=== PATIENT | female | born 1970 | race Caucasian/White ===

== ENCOUNTER → 2017-09-17 12:57 | Outpatient (CLI) | payer BC, SELFPAY ==
--- NOTE | 2017-09-17 13:00 | DI.MG.S_ITS ---
Patient Name: KEYANA KHALIL date: 1970 Sex: F Attending Physician: Tim Indications: Date: 09/17/2017 13:00 At the request of: FORTINO GAINES Procedure: MM screening mammo BI BILATERAL DIGITAL SCREENING MAMMOGRAM 3D/2D WITH CAD: 09/17/2017 CLINICAL: Routine screening. Family history of breast cancer. Comparison is made to exams dated: 04/22/2013 mammogram and 12/09/2010 mammogram - [facility]. The tissue of both breasts is heterogeneously dense. This may lower the sensitivity of mammography. Current study was also evaluated with a Computer Aided Detection (CAD) system. There is possible architectural distortion in the left breast middle depth central to the nipple seen on the mediolateral oblique view only. This is best seen on LMLO tomosynthesis slice 17 /66. There are circular mole markers and skin moles overlying the breasts bilaterally. No other significant masses, calcifications, or other findings are seen in either breast. IMPRESSION: INCOMPLETE: NEEDS ADDITIONAL IMAGING EVALUATION The possible architectural distortion in the left breast is indeterminate. Additional views with possible ultrasound are recommended. This exam was interpreted at Station ID: [id number]. NOTE: For mammograms, a report in lay terms will be sent to the patient. Approximately 15% of breast malignancies will not be visualized mammographically. In the management of a palpable breast mass, a negative mammogram must not discourage biopsy of a clinically suspicious lesion. Electronically Signed By: Jan Joe M.D. ecl/:09/17/2017 20:42:17 Continued Report - Page 2 of 2 Patient Name: KEYANA KHALIL date: 1970 Sex: F Attending Physician: Tim Indications: Date: 09/17/2017 13:00 At the request of: FORTINO GAINES Procedure: MM screening mammo BI letter sent: Additional Imaging Needed ACR BI-RADS Category 0: Incomplete 3340F
== END ==
PROVIDERS: PCP Nurse Practitioner; Visit Provider Nurse Practitioner Family
DX: Z12.31 Encounter for screening mammogram for malignant neoplasm of breast (principal); Z80.3 Family history of malignant neoplasm of breast
CPT/HCPCS: 77063; 77067

== ENCOUNTER → 2017-10-02 06:46 | Outpatient (CLI) | payer BC, SELFPAY ==
[2017-10-02 08:23] LABS: Appearance Urine UA CLEAR; Bilirubin Urine UA NEGATIVE (NEGATIVE); Color Urine UA YELLOW; Glucose Urine UA NEGATIVE (Normal); Ketones Urine UA TRACE (NEGATIVE); Leukocyte Esterase Urine UA NEGATIVE (NEGATIVE); Nitrite Urine UA Negative (Negative); Occult Blood Urine UA NEGATIVE (Negative); Protein Urine UA NEGATIVE (Negative); Urobilinogen Urine UA 0.2 E.U./dL (0.2); pH Urine UA 6.5 (4.5-8.0)
[2017-10-02 08:24] LABS: Add Manual Diff / Slide Review NO; Eosinophils Percent Auto 2.2 % (2-4); Hemoglobin 14.5 g/dL (12.0-16.0); Lymphocytes Percent Auto 28.5 % (25-40); Mean Corpuscular HGB Conc 34.6 % (30-36); Mean Corpuscular Hemoglobin 34.7 PG (26-34); Mean Corpuscular Volume 100.1 fL (80-100); Monocytes Percent Auto 2.1 % (3-14); Neutrophils Absolute Auto 4300 /uL (3000-5900); Neutrophils Percent Auto 66.2 % (50-75); Platelet Count 288 X10^3/uL (150-400); Red Blood Cell Count 4.19 X10^6/uL (4.0-5.2); Red Cell Distribution Width 13.3 % (11.6-14.8); White Blood Cell Count 6.5 X10^3/uL (4.5-11.0)
[2017-10-02 08:55] LABS: Alanine Aminotransferase 21 IU/L (9-52); Albumin 4.5 g/dL (3.5-5.0); Albumin Globulin Ratio 1.6 (1.0-2.8); Alkaline Phosphatase 51 U/L (38-126); Aspartate Aminotransferase 24 IU/L (14-36); BUN Creatinine Ratio 11.4 (6-22); Bilirubin Total 0.9 mg/dL (0.2-1.3); Blood Urea Nitrogen 8 mg/dL (7-17); Calcium 9.3 mg/dL (8.4-10.2); Carbon Dioxide 29 mmol/L (22-32); Chloride 99 mmol/L (98-107); Cholesterol 224 mg/dL (140-199); Estimated Glomerular Filt Rate > 60.0 mL/min (>60); Globulin 2.9 g/dL (1.7-4.1); Glucose 89 mg/dL (70-100); HDL Cholesterol 71 mg/dL (40-60); HEMOLYSIS < 15 (0-50); LDL Cholesterol Calculated 125 mg/dL (<100); Sodium 138 mmol/L (137-145); Total Protein 7.4 g/dL (6.3-8.2); Triglycerides 142 mg/dL (35-150)
== END ==
PROVIDERS: Visit Provider Nurse Practitioner Family
DX: Z00.00 Encounter for general adult medical examination without abnormal findings (principal); E78.2 Mixed hyperlipidemia
CPT/HCPCS: 36415; 80053; 80061; 81003; 85025

== ENCOUNTER → 2017-10-08 08:14 | Outpatient (CLI) | payer BC, SELFPAY ==
--- NOTE | 2017-10-08 08:16 | DI.US.S_ITS ---
ULTRASOUND OF LEFT BREAST: 10/08/2017 CLINICAL: Follow up from addtional views. Comparison is made to exams dated: 10/08/2017 mammogram, 09/17/2017 mammogram, and 04/22/2013 mammogram - [facility]. Real-time and Doppler ultrasound of the left breast were performed. Martinez scale images of the real-time examination were reviewed. Targeted ultrasound was performed in the left retroareolar region and along the 3:00 and 9:00 radians. No underlying breast mass or abnormality is identified. IMPRESSION: NEGATIVE Negative targeted ultrasound evaluation of the left breast for malignancy. Return to annual screening mammography is recommended. This exam was interpreted at Station ID: [id number]. Electronically Signed By: Jan Joe M.D. ecl/:10/08/2017 17:54:40 letter sent: Normal Exam Ultrasound BI-RADS: 1 Negative
--- NOTE | 2017-10-08 08:16 | DI.MG.S_ITS ---
UNILATERAL LEFT DIGITAL DIAGNOSTIC MAMMOGRAM 3D/2D WITH ADDITIONAL VIEWS: 10/08/2017 CLINICAL: Additional evaluation requested from prior study. Comparison is made to exams dated: 09/17/2017 mammogram, 04/22/2013 mammogram, and 12/09/2010 mammogram - [facility]. The tissue of the left breast is heterogeneously dense. This may lower the sensitivity of mammography. Previously noted possible architectural distortion in the left breast middle depth central to the nipple seen on the mediolateral oblique view only on comparison screening mammogram resolves with additional views and likely represented superimposition of benign anatomic tissues. No significant masses, calcifications, or other findings are seen in the breast. IMPRESSION: INCOMPLETE: NEEDS ADDITIONAL IMAGING EVALUATION Negative mammographic evaluation for malignancy in the imaged left breast. Targeted ultrasound of the left breast recommended. This exam was interpreted at Station ID: [id number]. NOTE: For mammograms, a report in lay terms will be sent to the patient. Approximately 15% of breast malignancies will not be visualized mammographically. In the management of a palpable breast mass, a negative mammogram must not discourage biopsy of a clinically suspicious lesion. Electronically Signed By: Jan brizuela/sourav:10/08/2017 08:54:24 letter sent: Additional Imaging Needed ACR BI-RADS Category 0: Incomplete [id number]
== END ==
PROVIDERS: Visit Provider Nurse Practitioner Family
DX: R92.8 Other abnormal and inconclusive findings on diagnostic imaging of breast (principal)
CPT/HCPCS: 76642; 77065; G0279

== ENCOUNTER → 2020-10-24 11:04 | Outpatient (CLI) | payer BC, SELFPAY ==
--- NOTE | 2020-10-24 11:06 | DI.RAD.S_ITS ---
PROCEDURE: XR HIP W PEL IF DONE LT 2V INDICATIONS: fall, L hip pain, ambulating with crutches TECHNIQUE: AP pelvis with lateral view(s) of the left hip(s). COMPARISON: None. FINDINGS: Bones: No fractures or dislocations. Pelvic ring appears intact. No suspicious bony lesions. Soft tissues: The visualized bowel gas pattern is normal. No suspicious soft tissue calcifications. Intrauterine device present. IMPRESSION: No acute fracture. No osseous lesion. If symptoms and/or clinical suspicion for pathology persist, further assessment with repeat, or advanced imaging (e.g., CT, MRI, or bone scan) may be helpful for further assessment. Dictated by: Priscila Urbano M.D. on 10/24/2020 at 11:23 Approved by: Priscila Urbano M.D. on 10/24/2020 at 11:23
== END ==
PROVIDERS: PCP Family Medicine; Referring Provider Physician Assistant; Visit Provider Physician Assistant
DX: M25.552 Pain in left hip (principal)
CPT/HCPCS: 73502

== ENCOUNTER → 2022-03-27 17:24 | Outpatient (CLI) | payer OTHER, SELFPAY ==
--- NOTE | 2022-03-27 17:33 | DI.RAD.S_ITS ---
PROCEDURE: XR SACRUM COCCYX MIN 2V INDICATIONS: Low back pain TECHNIQUE: 3 views of the sacrum and coccyx acquired. COMPARISON: [facility], CR, XR HIP W PEL IF DONE LT 2V, 10/24/2020, 11:03. FINDINGS: Bones: No fractures or dislocations. SI joints appear symmetric. No interval change seen. No sacral fracture or coccyx fracture is seen. No suspicious bony lesions. Soft tissues: Visualized bowel gas pattern is normal. No suspicious soft tissue densities. IUD in the pelvis. IMPRESSION: No fracture demonstrated. Dictated by: Dexter Rai M.D. on 03/28/2022 at 10:37 Approved by: Dexter Rai M.D. on 03/28/2022 at 10:52
== END ==
PROVIDERS: PCP Family Medicine; Referring Provider Nurse Practitioner Family; Visit Provider Nurse Practitioner Family
DX: M54.50 Low back pain, unspecified (principal)
CPT/HCPCS: 72220

== ENCOUNTER → 2022-04-12 12:47 | Outpatient (ROUT) | payer OTHER, SELFPAY ==
[2022-04-12 12:59] LABS: Appearance Urine UA CLEAR; Bilirubin Urine UA NEGATIVE (NEGATIVE); Color Urine UA YELLOW; Glucose Urine UA NEGATIVE (Negative); Ketones Urine UA NEGATIVE (NEGATIVE); Leukocyte Esterase Urine UA NEGATIVE (NEGATIVE); Nitrite Urine UA NEGATIVE (Negative); Occult Blood Urine UA NEGATIVE (Negative); Protein Urine UA NEGATIVE (Negative); Specific Gravity Urine UA <=1.005 (1.000-1.035); Urobilinogen Urine UA 0.2 E.U./dL (0.2)
[2022-04-12 13:00] LABS: pH Urine UA 5.5 (4.5-8.0)
[2022-04-12 13:17] LABS: Bacteria Urine None Seen; Culture Indicated Urine Cult Not Indicated; RBC Urine None Seen (0-5/HPF); Urine Comments Microscopic Normal; WBC Urine None Seen (0-5/HPF)
== END ==
PROVIDERS: PCP Family Medicine; Visit Provider Physician Assistant
DX: M54.50 Low back pain, unspecified (principal); R30.0 Dysuria
CPT/HCPCS: 81001

== ENCOUNTER → 2022-04-12 17:28 | Outpatient (CLI) | payer OTHER, SELFPAY ==
--- NOTE | 2022-04-12 17:30 | DI.RAD.S_ITS ---
PROCEDURE: XR LUMBAR SPINE 2-3V INDICATIONS: Low back pain x 3 months, getting worse TECHNIQUE: 3 views of the lumbar spine were acquired. COMPARISON: None. FINDINGS: Bones: 5 [id number] vertebrae are present. There is normal bony alignment. No vertebral body compression fractures. No suspicious bony lesions. Multilevel disc space narrowing and endplate osteophyte formation. Facet hypertrophy throughout the mid and lower lumbar spine. Soft tissues: Overlying bowel gas pattern is normal. No suspicious soft tissue calcifications. IMPRESSION: 1. Multilevel degenerative disc and facet disease. 2. No acute fracture. No osseous lesion. If symptoms and/or clinical suspicion for pathology persist, further assessment with repeat, or advanced imaging (e.g., CT, MRI, or bone scan) may be helpful for further assessment. Dictated by: Priscila Urbano M.D. on 04/13/2022 at 10:41 Transcribed by: ORAL on 04/13/2022 at 10:42 Approved by: Priscila Urbano M.D. on 04/13/2022 at 16:22
== END ==
PROVIDERS: PCP Family Medicine; Referring Provider Physician Assistant; Visit Provider Physician Assistant
DX: M51.36 Other intervertebral disc degeneration, lumbar region (principal); M54.50 Low back pain, unspecified; R30.0 Dysuria
CPT/HCPCS: 72100; 81001

== ENCOUNTER → 2022-05-07 12:07 | Outpatient (CLI) | payer OTHER, SELFPAY ==
--- NOTE | 2022-05-07 12:41 | DI.MRI.S_ITS ---
PROCEDURE: MR LUMBAR SPINE WO CON INDICATIONS: abnormal xray/back pain TECHNIQUE: Noncontrast sagittal T1 spin echo and T2 fast echo, sagittal STIR, and T2 fast spin echo through the lumbar spine. In cases with scoliosis, additional coronal T2 fast spin echo may be performed. COMPARISON: [facility], , XR LUMBAR SPINE 2-3V, 04/12/2022, 17:29. FINDINGS: Image quality: Excellent. Alignment and Curvature: 5 lumbar type vertebral bodies are present by plain film. Alignment is normal. Bone Marrow: Marrow is of normal overall signal. No acute vertebral body compression fractures. Minimal reactive signal throughout the endplates of the lumbar and lower thoracic spine. Spinal Cord: Conus medullaris terminates at the lower L1 level. Visualized cord demonstrates normal signal and size. Paraspinous Soft Tissues: No paravertebral masses. T12-L1: Normal appearance. L1-L2: Normal appearance. L2-L3: Normal appearance. L3-L4: Mild disc desiccation and diffuse disc bulge. Mild epidural lipomatosis. No significant canal, or foraminal stenosis. L4-L5: Mild disc desiccation and diffuse disc bulge. Mild canal stenosis. Mild bilateral foraminal stenosis. L5-S1: Normal appearance. IMPRESSION: Multilevel degenerative disc and facet disease. No significant canal, or foraminal stenosis. No neural impingement. Dictated by: Priscila Urbano M.D. on 05/08/2022 at 10:37 Approved by: Priscila Urbano M.D. on 05/08/2022 at 10:45
== END ==
PROVIDERS: PCP Family Medicine; Referring Provider Physician Assistant; Visit Provider Physician Assistant
DX: M51.36 Other intervertebral disc degeneration, lumbar region (principal); M48.061 Spinal stenosis, lumbar region without neurogenic claudication; M54.50 Low back pain, unspecified; R93.7 Abnormal findings on diagnostic imaging of other parts of musculoskeletal system
CPT/HCPCS: 72148

== ENCOUNTER → 2022-05-26 07:25 | Outpatient (CLI) | payer OTHER, SELFPAY ==
--- NOTE | 2022-05-26 07:27 | DI.MG.S_ITS ---
BILATERAL DIGITAL SCREENING MAMMOGRAM 3D/2D WITH CAD: 05/26/2022 CLINICAL: Routine screening. Comparison is made to exams dated: 10/08/2017 ultrasound, 10/08/2017 mammogram, 09/17/2017 mammogram, and 04/22/2013 mammogram - [facility]. Both breasts are heterogeneously dense, which may obscure small masses (category c / 51-75% glandular tissue). Current study was also evaluated with a Computer Aided Detection (CAD) system. No significant masses, calcifications, or other findings are seen in either breast. There has been no significant interval change. IMPRESSION: NEGATIVE There is no mammographic evidence of malignancy. A 1 year screening mammogram is recommended. Based on the Tyrer Cuzick model (a risk assessment model) the patient's lifetime risk is 18.0% and her 10 year risk is 4.6%. According to the ACR, ACS, and NCCN guidelines, an annual breast MRI exam along with mammogram is recommended if the patient's lifetime risk is 20% or greater. This exam was interpreted at Station ID: [id number]. NOTE: For mammograms, a report in lay terms will be sent to the patient. Approximately 15% of breast malignancies will not be visualized mammographically. In the management of a palpable breast mass, a negative mammogram must not discourage biopsy of a clinically suspicious lesion. Electronically Signed By: Janae vásquez/sourav:05/26/2022 15:26:05 letter sent: Normal Exam ACR BI-RADS Category 1: Negative [id number]
[2022-05-26 10:11] LABS: Cholesterol 196 mg/dL (140-199); Glucose 82 mg/dL (70-100); HDL Cholesterol 57 mg/dL (40-60); LDL Cholesterol Calculated 116 mg/dL (<100); Triglycerides 114 mg/dL (35-150)
== END ==
PROVIDERS: PCP Family Medicine; Referring Provider Family Medicine; Visit Provider Family Medicine
DX: Z12.31 Encounter for screening mammogram for malignant neoplasm of breast (principal); Z00.00 Encounter for general adult medical examination without abnormal findings
CPT/HCPCS: 36415; 77063; 77067; 80061; 82947; 99001

== ENCOUNTER 2022-08-15 14:26 | Outpatient (CLI) | payer OTHER, SELFPAY ==
[2022-08-15] VITALS (8 sets, daily range): BP systolic 119–141; BP diastolic 69–92; PULSE 67–81; RESP 14–22; O2SAT 98–100
--- NOTE | 2022-08-15 14:27 | DI.RAD.S_ITS ---
PROCEDURE: PAIN SI JOINT INJECTION INDICATIONS: COCCYGEAL DISCOMFORT COMPARISON: None. FINDINGS: Fluoroscopic spot filming was performed to verify placement of spinal needles at the cocked level(s), as labeled on the films. Appropriate location(s) of the needle tip(s) was confirmed by injection of iodinated contrast. IMPRESSION: Coccyx needle placement. Dictated by: Vicky Stewart M.D. on 08/15/2022 at 17:37 Approved by: Vicky Stewart M.D. on 08/15/2022 at 17:37
[2022-08-15] MEDS: MIDAZOLAM 2 MG/2 ML VIAL IV (15:26)
[2022-08-15] MEDS: BETAMETHASONE 30 MG/5 ML MDV 12 MG INJ (15:31)
[2022-08-15] MEDS: IOPAMIDOL 15 ML VIAL 3 ML INJ (15:31)
[2022-08-15] MEDS: BUPIVACAINE 0.5% (PF) 10 ML VIAL 2 ML INJ (15:31)
--- NOTE | 2022-08-15 15:45 | PM.PROC.IR.1 ---
Date/Time/Diagnoses Date of procedure: 08/15/22 Time of procedure: 15:46 Pre-procedure diagnosis: Coccydynia Procedure Notes Procedure: Fluoroscopically guided contrast controlled Coccyx Injection Indications: Coccydynia Physician: Edy Mcgill Total Fluoroscopy time (seconds): 18 Total sedation minutes: 14 Procedure in detail & Post-procedure care: DESCRIPTION OF PROCEDURE Fluoroscopic guided, contrast controlled coccyx injection Following review of allergies and review of potential side effects and complications, including, but not necessarily limited to, infection, allergic reaction, local tissue breakdown, temporary as well as permanent nerve injury, paralysis, stroke and possible , the patient indicated that they understood and agreed to proceed. An informed consent was signed by the patient, witnessed by a nurse, and placed in the patient's chart. Additionally, other treatment options including modalities, medications, and physical therapy were reviewed with the patient. After review of previous anaesthesic history and IV conscious sedation the patient was deemed safe to proceed with today?s procedure with IV conscious sedation as ASA class II designation. Safety time-out was performed to confirm patient ID, procedure to be performed and site of procedure. IV sedation was accomplished with a combination of 2mg of Versed administered by the RN after DO order, titrated to patient comfort during the course of the procedure while the patient remained responsive to all verbal commands. In the prone position following sterile prep and drape of the pelvic region, the hyper lucency on in the inferior aspect of the coccyx joint was identified fluoroscopically the skin was anesthetized be a 25 gauge 1 eventual with approximately 2cc of 1% lidocaine solution. At this point, a 22 gauge 3inch spinal needle was atraumatically introduced and advanced under fluoroscopic guidance into the inferior aspect of the left sacroiliac joint. Following negative aspiration, approximately 0.3cc of Isovue-300 was injected confirming intra-articular placement without vascular uptake. Radiographic data, including multiple fluoroscopic views of the pelvis, reveals a spinal needle in the coccyx. Subsequent view show flow contrast tear superiorly and inferiorly within the joint capsule without vascular intrathecal uptake. At this point a total of 1cc or 0.5% Marcaine was combined with 1cc of 6mg of betamethasone was injected without incident. The patient tolerated the procedure well without signs or symptoms of complications prior to transfer to the recovery area for further monitoring. The patient was then transferred to the recovery area with a bur observed for an appropriate time after the injection. The patient reverted a vas score of 7 prior to the procedure and postprocedure vas of 1. POSTOP INSTRUCTIONS The patient was provided with a pain like to continue to record the patient's response to the target specific procedure prior to the patient's follow-up visit with the referring physician. Additionally, specific post injection care instructions and a contact number to our office were provided if concerns arise regarding the possible complications associated with procedure are suspected.
== END 2022-08-15 15:56 | disposition home or self-care (01) ==
LOC: RAD 14:27
PROVIDERS: PCP Family Medicine; Referring Provider Physical Medicine & Rehabilitation; Visit Provider Physical Medicine & Rehabilitation
DX: M53.3 Sacrococcygeal disorders, not elsewhere classified (principal)
CPT/HCPCS: 27096; 99152; J0702; J2250

== ENCOUNTER → 2022-10-03 14:46 | Outpatient (CLI) | payer OTHER, SELFPAY | PROVIDERS: PCP Family Medicine; Referring Provider Physical Medicine & Rehabilitation; Visit Provider Physical Medicine & Rehabilitation | DX: M53.3 Sacrococcygeal disorders, not elsewhere classified (principal) ==

== ENCOUNTER → 2022-10-09 17:14 | Outpatient (CLI) | payer OTHER, SELFPAY ==
--- NOTE | 2022-10-09 17:15 | DI.MRI.S_ITS ---
PROCEDURE: MR PELIS WO/W CON INDICATIONS: progressive pelvic and coccyx pain since 01/24 TECHNIQUE: Coronal HASTE, sagittal T2 FSE, axial T1 FSE, axial and coronal nonbreath-hold T2 FSE. Axial dynamic VIBE during administration of contrast. Post-contrast axial and coronal VIBE/2-D FLASH with fat saturation from the iliac crests to the symphysis. Optional diffusion weighted imaging and ADC may be performed. COMPARISON: [facility], CR, XR SACRUM COCCYX MIN 2V, 03/27/2022, 17:31. FINDINGS: Image quality: Excellent. Bowel and peritoneum: No pathologic free pelvic fluid. Inferior colon and small bowel loops are normal in caliber. Genitourinary system: Bladder wall is normal in thickness. Distal ureters are non distended. Uterus and bilateral ovaries show no gross abnormalities. Nodes and vessels: No pathologic pelvic or inguinal adenopathy by size criteria. Iliac vessels are normal in caliber. Soft tissues: No inguinal hernias. No gross muscle or tendon signal abnormalities. Bones: There is no marrow edema. No fracture or dislocation. No sacral or coccygeal fracture. Bilateral sacroiliac joint spaces are fairly well preserved without bony erosion or ankylosis. No area of abnormal intraosseous enhancement. No suspicious bony lesions. No evidence of avascular necrosis of femoral head. IMPRESSION: 1. No sacral or coccygeal fracture. No marrow edema. No suspicious bony lesion. No abnormal intraosseous enhancement. 2. No MR evidence of active sacroiliitis. No bony erosion or ankylosis is seen in bilateral sacroiliac joints. 3. No gross muscle or tendon signal abnormality is seen in pelvis. 4. No pelvic free fluid. No abnormal bowel wall thickening. Bladder wall thickness is normal. No pelvic lymphadenopathy by size criteria. Dictated by: Elmer Galeas M.D. on 10/10/2022 at 12:38 Approved by: Elmer Galeas M.D. on 10/10/2022 at 12:42
== END ==
PROVIDERS: PCP Family Medicine; Referring Provider Physical Medicine & Rehabilitation; Visit Provider Physical Medicine & Rehabilitation
DX: M53.3 Sacrococcygeal disorders, not elsewhere classified (principal); R10.2 Pelvic and perineal pain
CPT/HCPCS: 72197; A9579

== ENCOUNTER 2022-10-20 06:45 | Day surgery (SDC) | payer OTHER, SELFPAY ==
--- NOTE | 2022-10-20 | PATH_ITS ---
[facility] Accession Number: [id number] No. of containers..03 Tissue . 01 Material submitted: . PART A: colon - TRANSVERSE POLYP PART B: colon - SIGMOID POLYP PART C: anal skin - ANAL MASS . 01 Diagnosis: A. Transverse Colon Polyp, Biopsy: Tubular adenoma. . B. Sigmoid Colon Polyp, Biopsy: Hyperplastic polyp. . C. Anal Mass, Biopsy: Invasive colonic adenocarcinoma, moderate to poorly differentiated in a background of ulceration. No definite lymphovascular or perineural invasion identified. See comment. [facility] 11/01/2022 1330 Local . 01 Comment: As part of routine quality control assistant, this case was also reviewed by Dr. Rolan Louis, gastrointestinal pathologist, who agrees with the interpretation. . Immunoshistochemical staining for markers of microsatellite instability (MSI) will be performed and the results will be reported as an addendum. Findings were called to Dr. Choi's nurse, Ms Saunders on 11/01/20[address] Parada. . 01 Electronically signed: . Cheryl Parada MD, Pathologist NPI- [id number] . 01 Gross description: . Part A: TRANSVERSE POLYP: Received in formalin is 1 fragment(s) of jennings, soft tissue measuring 1.2 x 0.5 x 0.3 cm submitted entirely in 1 cassette(s) Part B: SIGMOID POLYP: Received in formalin are 2 fragment(s) of jennings, soft tissue measuring 0.1 x 0.1 x 0.1 cm to 0.2 x 0.1 x 0.1 cm submitted entirely in 1 cassette(s) Part C: ANAL MASS: Received in formalin are multiple fragment(s) of jennings, soft tissue measuring 0.1 x 0.1 x 0.1 cm to 0.3 x 0.2 x 0.2 cm submitted entirely in 1 cassette(s) /ADAM 10/25/2022 0046 Local . 01 Pathologist provided ICD-10: D12.3, D12.5, C21.1 . 01 CPT . 041283, 254289, [id number] Specimen Comment: A courtesy copy of this report has been sent to [facility] Performed at: 01 [facility] [address] [place] [id number] MD Irwin Sorenson MD Phone: [phone]
[2022-10-20] MEDS: LACTATED RINGERS 1,000 ML 100 ML IV (07:30)
[2022-10-20 07:43] VITALS: BP 124/69; PULSE 69; RESP 16; TEMP 36.3; O2SAT 99; BMI 17.2
--- NOTE | 2022-10-20 08:04 | P.HP_ITS ---
History of Present Illness History of Present Illness Date Patient Seen: 10/20/22 Time Patient Seen: 08:04 Chief complaint: Screening Colonoscopy Narrative: Ms. Wesley Gastelum is a 52 year old female who presents today for her 1st screening colonoscopy. She is never had 1 before. She has no family history of colon cancer. She is no concerning symptoms. She does endorse pain in her coccyx because she understands she had injury though it has been going on since last winter. She is working with a doctor about it and does not things at home like standing at her desk to help. She has no further questions about a colonoscopy and would like to proceed. [facility] Medical History (Updated 10/20/22 @ 08:05 by Tana Choi MD) Abnormal Pap smear of cervix (1993) Anorexia nervosa (1985) Anxiety (10/26/10) Anxiety Chicken pox (1972) Lumbosacral spondylosis Nontraumatic coccydynia Pelvic pain in female Surgical History Anesthesia complication Status post delivery (2002) Status post cholecystectomy (1998) Status post LASIK surgery (2003) Family History Father No problems noted. Grandfather No problems noted. Grandmother Breast cancer Mother Hyperlipidemia Grandfather No problems noted. Grandmother No problems noted. Social History household members: spouse Smoking Status: Current every day smoker alcohol intake: current Meds Home Medications and Allergies Home Medications Medication Instructions Recorded Confirmed Type alprazolam 0.5 mg tablet 0.5 mg PO Q6H PRN anxiety #10 tabs 05/29/12 10/20/22 Rx levonorgestrel 21 mcg/24 hours (8 52 mg INTRAU ##0 06/19/16 08/30/22 History yrs) 52 mg intrauterine device (Mirena) ibuprofen 200 mg tablet (Advil) 400 mg PO Q8H 07/26/22 10/20/22 History gabapentin 300 mg capsule 300 mg PO .COMPLEX #90 caps 09/07/22 10/20/22 Rx tramadol 50 mg tablet 50 mg PO BID PRN Pain (Scale Score 10/13/22 10/20/22 History 7-10) Allergies Allergy/AdvReac Type Severity Reaction Status Date / Time Sulfa (Sulfonamide Allergy Mild Rash Verified 10/20/22 07:35 Antibiotics) ciprofloxacin Allergy Unknown Verified 10/20/22 07:35 Exam Vital Signs (past 8 hours): - 10/20/22 07:43 Temperature 97.4 F L Pulse Rate 69 Respiratory Rate 16 Blood Pressure 124/69 Pulse Oximetry 99 Oxygen Delivery Method Room Air Oxygen Delivery Method Room Air Const General: cooperative, healthy appearing and comfortable HENMT Head: normal to inspection Eyes General: appearance normal, both eyes and all related structures Resp Effort & Inspection: normal respiratory effort and able to speak in complete sentences GI Palpation: soft and No tender Assessment & Plan Assessment and plan (1) Colon cancer screening: Status: Acute Assessment & Plan narrative: Presents today for screening colonoscopy I discussed the risks benefits and alternatives including but not limited to perforation of the colon and an incomplete exam she fully understands these risks and would like to proceed.
[2022-10-20 09:08] VITALS: BP 123/88; PULSE 70; RESP 18; TEMP 36.1; O2SAT 98
[2022-10-20 09:13] VITALS: BP 137/88; PULSE 70; RESP 16; O2SAT 97
[2022-10-20 09:18] VITALS: BP 130/85; PULSE 60; RESP 15; O2SAT 100
--- NOTE | 2022-10-20 09:25 | P.OP.COLON_ITS ---
Operative Date/Time/Diagnoses Date of procedure: 10/20/22 Time of procedure: 09:25 Pre-op diagnosis: Screening for colon cancer. No family history. Symptom of coccydynia Post-op diagnosis: other (Anal mass, inguinal lymphadenopathy) Procedure & Clinicians Study performed: Colonoscopy and biopsy Same procedure as scheduled: Yes Indications: Screening for colon cancer, coccydynia Surgeon: Tana Choi Procedure Notes Procedure in detail: Patient was taken to the endoscopy suite and placed in a left lateral decubitus position. A time-out was performed. With the help of anesthesiologist conscious sedation was induced and monitored throughout the case. A digital rectal exam was performed and there was a palpable mass that was circumferential and friable at approximately 2-3 cm from the anal verge. The colonoscope was then carefully and gently introduced into the anal canal and the mass was seen. It was almost circumferential with some ulcerations. It was friable and has a possibly malignant appearance. There was a central luminal canal through which I was able to easily pass the colonoscope. I then advanced the scope through to the cecum. A photograph of the appendiceal orifice was obtained. The bowel prep was good Gruetli Laager bowel prep score of 2. The scope was then withdrawn for a total of 25 minutes including all biopsies. There was a 4-5 mm polyp at the transverse colon that was snared with a cold snare and removed in its entirety. There was a 2nd sigmoid polyp that was removed with a couple bites of the forceps. This was small. There were few scattered diverticula in the sigmoid colon which were photographed. The scope was withdrawn into the anal canal just proximal to the anal mass there were 2 extremely small polyps which I did attempt to biopsy but because of the mass in the way nearby and leakage of air from the anus this proved difficult, and I think ultimately these small lesions are insignificant. I then turned my attention to the anal mass and biopsied the main mass with several bites of the forceps. I took samples around the ulcerated areas and the edges of the lesion as well as some of the main polypoid-looking lesions and obtained as much tissue as I thought was reasonably possible. Photographs were obtained before and after the biopsies. The patient tolerated the procedure well and went in good condition to the postoperative care unit however I do anticipate some bleeding and pain from procedure. Findings: divertiulosis, polyp(s) and other findings (Anal mass) Specimen(s): other (1. Transverse polyp 2. Sigmoid polyp 3. Anal mass) Complications: none Post-procedure Plan for aftercare: Will await the pathology results to determine diagnosis of this lesion. I do suspect that this may be the culprit behind her coccydynia. In addition I was able to palpate palpable adenopathy in the bilateral inguinal areas with the l eft side having more areas in the right. Though it was present bilaterally. In addition I have spoken to the radiologist today about her most recent MRI of pelvis. Personally reviewed the images with him in the reading room today and he was able to see evidence of the tumor in the anal canal however explained that the protocol that was used for that MRI was a musculoskeletal protocol and therefore not optimal for evaluating the anal canal. He has recommended reordering a pelvic MRI with and without contrast using a diagnosis code of anal mass in order to get the right protocol used. He also advised that if the radiologist could know ahead of time the pathology of the lesions specifically whether it is squamous or adenocarcinoma, this will help the radiologist to use the appropriate staging verbiage in his read. I had a long discussion with the patient and her at the bedside after her colonoscopy to explain anal cancer and chemotherapy radiation being the mainstay of treatment usually. I also discussed with them the beginning of the workup as well as the fact that the final diagnosis can not be made without looking at it underneath the microscope. I will call them as soon as I have the results from the biopsies and any further information that they need. I have encouraged him to call the office as needed with questions or concerns. I have ordered a CT scan of the chest abdomen pelvis with IV contrast for staging workup. I have also obtained labs a CBC BMP liver function and CEA and HIV status as part of the workup. I will order the MRI to be done in 2 weeks as well as an ultrasound-guided biopsy of the inguinal lymph nodes. Once we have a diagnosis and some more information we will make an appropriate referral for Oncology if indicated. I spent several minutes discussing these findings and showing pictures of the operative findings to the patient and at the bedside who verbalized understanding and his questions were answered at this time. I did again encourage them to call the office with questions or concerns that come up any time. I understand this is a lot of information and this is not what I was expecting to find today and not what they were expecting by any stretch either.
[2022-10-20 09:30] VITALS: BP 129/85; PULSE 63; RESP 15; O2SAT 100
[2022-10-20] MEDS: OXYCODONE IR 5 MG TABLET PO (09:30)
[2022-10-20 09:45] VITALS: BP 123/79; PULSE 67; RESP 14; TEMP 36.6; O2SAT 100
[2022-10-20 09:53] LABS: Add Manual Diff / Slide Review NO; Basophils Absolute Auto 100 /uL (0-100); Basophils Percent Auto 0.8 % (0-2); Eosinophils Absolute Auto 500 /uL (0-450); Eosinophils Percent Auto 7.7 % (2-4); Hemoglobin 13.2 g/dL (12.0-16.0); Lymphocytes Absolute Auto 1800 /uL (1100-4500); Lymphocytes Percent Auto 25.4 % (25-40); Mean Corpuscular HGB Conc 34.8 % (30-36); Mean Corpuscular Hemoglobin 33.5 PG (26-34); Mean Corpuscular Volume 96.1 fL (80-100); Monocytes Absolute Auto 100 /uL (0-900); Monocytes Percent Auto 1.8 % (3-14); Neutrophils Absolute Auto 4500 /uL (1500-7000); Neutrophils Percent Auto 64.3 % (50-75); Platelet Count 409 X10^3/uL (150-400); Red Blood Cell Count 3.96 X10^6/uL (4.0-5.2); Red Cell Distribution Width 13.1 % (11.6-14.8); White Blood Cell Count 7.1 X10^3/uL (4.5-11.0)
[2022-10-20 10:05] LABS: Alanine Aminotransferase 15 IU/L (<35); Albumin 3.9 g/dL (3.5-5.0); Albumin Globulin Ratio 1.3 (1.0-2.8); Alkaline Phosphatase 113 U/L (38-126); Aspartate Aminotransferase 31 IU/L (14-36); Bilirubin Total 0.5 mg/dL (0.2-1.3); Bilirubin Unconjugated 0.3 mg/dL (0.0-1.1); HEMOLYSIS < 15 (0-50); Total Protein 6.9 g/dL (6.3-8.2)
--- NOTE | 2022-10-20 10:24 | SUR.PHASEII ---
10:00, late entry: Dr Choi speaking to patient and in private room regarding colonoscopy results. Nurse at bedside for conversation.
[2022-10-20 11:04] LABS: HIV 1 & 2 Ab/Ag 4th Gen Combo NEGATIVE (NEGATIVE)
== END 2022-10-20 10:37 | disposition home or self-care (01) ==
PROVIDERS: PCP Family Medicine; Referring Provider Surgery; Visit Provider Surgery
PROC: 0DJD8ZZ Inspection of Lower Intestinal Tract, Via Natural or Artificial Opening Endoscopic (ICD-10-PCS; CPT 45378; principal; 2022-10-20 07:45)
DX: Z12.11 Encounter for screening for malignant neoplasm of colon (principal); R59.0 Localized enlarged lymph nodes; K57.30 Diverticulosis of large intestine without perforation or abscess without bleeding; D12.3 Benign neoplasm of transverse colon; C21.1 Malignant neoplasm of anal canal
CPT/HCPCS: 45385; 45380; 80076; 82378; 85025; 87389; J2704

== ENCOUNTER → 2022-10-27 14:25 | Outpatient (CLI) | payer OTHER, SELFPAY ==
--- NOTE | 2022-10-27 14:27 | DI.MRI.S_ITS ---
PROCEDURE: MR PELIS WO/W CON INDICATIONS: possible anal cancer TECHNIQUE: Coronal HASTE, sagittal T2 FSE, axial T1 FSE, axial and coronal nonbreath-hold T2 FSE. Axial dynamic VIBE during administration of contrast. Post-contrast axial and coronal VIBE/2-D FLASH with fat saturation from the iliac crests to the symphysis. Optional diffusion weighted imaging and ADC may be performed. COMPARISON: [facility], CT, CT CHEST ABD PEL W CON, 10/27/2022, 16:05. [facility], MR, MR PELVIS WO/W CON, 10/09/2022, 17:44. FINDINGS: Image quality: Excellent. Rectum: Morphology: Circumferential and semi circumferential Clock face of tumor involvement: 360? Mucinous (high T2 signal): No Craniocaudal length: Approximately 7 cm. Distance to anal verge: About 3.3 cm Distance to top of sphincter complex/anorectal junction: 0 Relationship to anterior peritoneal reflection: The left Tumor at or below puborectalis sling: Yes T staging: Depth of extramural invasion: 5-15 mm. Extramural vascular invasion: None visible T3 tumors only: distance to mesorectal fascia (circumferential resection margin): 0. Tethering the left mesorectal fascia. There is involvement of the internal anal sphincter and probably left intersphincteric plane. Pelvic organ involvement: Genitourinary: None. IUD in place incidentally noted. Pelvic sidewall (obturator internus, piriformis, ischiococcygeus muscles): Uninvolved Pelvic floor (pubococcygeus, iliococcygeus, puborectalis, levator plate): Abuts the levator sling posterior and to the left. Sacrum: And involved Vessels (internal and external iliac arteries and veins): Uninvolved Nerves (lumbosacral nerve roots): Uninvolved Regional lymph nodes (mesorectal, inguinal, iliac): Numerous abnormal perirectal, pelvic sidewall, internal, and external iliac chain adenopathy. There is a large left external chain lymph node measuring 1.7 cm short axis. There is also no abnormal lymph node in the right sciatic neurovascular bundle. The most proximal visible abnormal lymph node is in the left common iliac chain dorsally measuring 2.0 cm short axis. Other bowel and peritoneum: No pathologic free pelvic fluid. More proximal colon and small bowel loops are normal in caliber. Bones: Marrow is normal in overall signal. IMPRESSION: 1. 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 2. Pelvic adenopathy as described. No visible EMVI. Dictated by: Janae Holland M.D. on 10/30/2022 at 10:25 Approved by: Janae Holland M.D. on 10/30/2022 at 10:50
--- NOTE | 2022-10-27 14:27 | DI.CT.S_ITS ---
PROCEDURE: CT CHEST ABD PEL W CON INDICATIONS: Anal mass and palpable inguinal lymphadenopathy TECHNIQUE: After the administration of intravenous contrast, 5 mm thick sections acquired from the lung apices to the symphysis. 5 mm coronal and sagittal reformats were performed, with additional 7 mm MIP reformats through the lungs. For radiation dose reduction, the following was used: automated exposure control, adjustment of mA and/or kV according to patient size. COMPARISON: [facility], MR, MR PELVIS WO/W CON, 10/09/2022, 17:44. FINDINGS: Image quality: Excellent. CHEST: Lungs and pleura: No acute airspace opacities. No pleural effusions or pneumothorax. Central and peripheral airways appear patent and normal in caliber. Pulmonary nodules are as follows (all described on series 3): 1. Cavitary pulmonary nodule, posterior right upper lobe, image 78, 7.5 mm. The 2. Solid nodule with minimal central calcification, left lower lobe, image 134, 10 mm. 3. Fissural nodule, minor fissure of right lung, image 171/3, 5 mm, possibly a fissural lymph node. 4. Small pleural based cavity, right lower lobe, image 115, 6 mm. Mediastinum: Heart size is normal. No pericardial effusion. No mediastinal or hilar adenopathy by size criteria. Thoracic aorta and central pulmonary arteries are normal in size. Esophagus is normal in caliber. No hiatal hernia. Chest wall: No axillary or supraclavicular adenopathy by size criteria. Thyroid gland is unremarkable . ABDOMEN: Solid organs: Large right lobe liver metastatic lesion with some associated calcifications, near the dome of the liver, measuring approximately 4.8 x 4.9 x 5.8 cm. Reference coronal image 27/4 and axial image 61/2. Gallbladder is surgically absent . Biliary system is non dilated. Pancreas enhances normally. Spleen is normal in size and enhancement. No adrenal nodules. Kidneys demonstrate normal size and enhancement, without hydronephrosis. Peritoneum and bowel: Distal rectal/anal mass, with superficial spreading thickening along the wall of the colon with a intraluminal component, consistent with distal colonic/anal carcinoma. Reference sagittal image 36/5 and axial image 120/2. There are definite metastatic lesions in the perirectal fat. On image 111/2 there are 2 such lesions, measuring 1.4 cm and 1.2 cm respectively. Nodes and vessels: No retroperitoneal or mesenteric adenopathy by size criteria. Aorta and inferior vena cava are normal in size. Miscellaneous: No ventral hernias. PELVIS: Genitourinary: Bladder wall thickness is normal. Miscellaneous: No inguinal hernias or adenopathy. IUD Bones: No suspicious bony lesions. No vertebral body compression fractures. IMPRESSION: 1. Malignancy involving the distal rectum and anus with local regional metastatic disease, and a large distal metastatic lesion in the liver. 2. The pulmonary lesions, although nonspecific, likely indicate metastatic disease, particularly the lesion with central calcification. The lesion with central calcification would commonly represent a hamartoma. However, this lesion has similar appearance to the liver lesion, in terms of the presence of calcification. These lesions can be followed over time on subsequent imaging studies. Dictated by: Riccardo Fitzpatrick M.D. on 10/27/2022 at 16:55 Approved by: Riccardo Fitzpatrick M.D. on 10/27/2022 at 17:20
--- NOTE | 2022-10-27 14:27 | DI.US.S_ITS ---
PROCEDURE: US ABDOMEN LIMITED INDICATIONS: RECTAL MASS TECHNIQUE: Real-time focused scanning was performed of the abdomen, with image documentation. COMPARISON: [facility], CT, CT CHEST ABD PEL W CON, 10/27/2022, 16:05. FINDINGS: Liver measures 16.1 cm. There is a solid-appearing mass measuring 5.7 x 5.1 x 4.3 cm with increased vascularity in the right lobe. Gallbladder is been removed. Common bile duct measures 5 mm. IMPRESSION: Hepatic mass with increased vascularity. In correlation with CT, finding is suggestive metastatic disease. Dictated by: Vicky Stewart M.D. on 10/27/2022 at 20:02 Approved by: Vicky Stewart M.D. on 10/27/2022 at 20:03
== END ==
PROVIDERS: PCP Family Medicine; Referring Provider Surgery; Visit Provider Surgery
DX: C21.8 Malignant neoplasm of overlapping sites of rectum, anus and anal canal (principal); C78.7 Secondary malignant neoplasm of liver and intrahepatic bile duct; R91.8 Other nonspecific abnormal finding of lung field; K62.89 Other specified diseases of anus and rectum; R59.0 Localized enlarged lymph nodes
CPT/HCPCS: 71260; 72197; 74177; 76705; A9579

== ENCOUNTER 2022-11-21 13:24 | Day surgery (SDC) | payer OTHER, SELFPAY ==
[2022-11-15 12:37] VITALS: BMI 17.2
[2022-11-21 13:57] VITALS: BP 123/72; PULSE 78; RESP 16; TEMP 36.2; O2SAT 98; BMI 17.2
--- NOTE | 2022-11-21 14:25 | PM.HP.1 ---
History of Present Illness History of Present Illness Date Patient Seen: 11/21/22 Time Patient Seen: 14:25 Chief complaint: Port Placement Narrative: 52 yo F who had an unfortunate presentation of anal cancer identified on a screening colonoscopy. 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 She has seen the oncology group at [facility] and I have reviewed this consultation note. She needs to get an MRI and a treatment course will be finalized but will include chemotherapy and she has been sent today for Port-A-Cath placement. She has done some research and had no questions about the procedure. [facility] Medical History (Updated 11/21/22 @ 14:28 by Tana Choi MD) Abnormal Pap smear of cervix (1993) Anorexia nervosa (1985) Anxiety (10/26/10) Anxiety Chicken pox (1972) IUD (intrauterine device) in place Lumbosacral spondylosis Nontraumatic coccydynia Pelvic pain in female Surgical History Anesthesia complication Status post delivery (2002) Status post cholecystectomy (1998) Status post LASIK surgery (2003) Family History Father No problems noted. Grandfather No problems noted. Grandmother Breast cancer Mother Hyperlipidemia Grandfather No problems noted. Grandmother No problems noted. Social History household members: spouse Smoking Status: Current every day smoker alcohol intake: current Meds Home Medications and Allergies Home Medications Medication Instructions Recorded Confirmed Type alprazolam 0.5 mg tablet 0.5 mg PO Q6H PRN anxiety #10 tabs 05/29/12 11/21/22 Rx levonorgestrel 21 mcg/24 hours (8 52 mg INTRAU NOW ##0 06/19/16 11/15/22 History yrs) 52 mg intrauterine device (Mirena) ibuprofen 600 mg tablet 600 mg PO Q6H #30 tabs 11/13/22 11/21/22 Rx hydrocodone 5 mg-acetaminophen 325 1.5 tab PO Q6H PRN pain #30 tabs 11/20/22 11/21/22 Rx mg tablet Allergies Allergy/AdvReac Type Severity Reaction Status Date / Time ciprofloxacin Allergy Severe throat Verified 11/21/22 13:48 swelling Sulfa (Sulfonamide Allergy Mild Rash Verified 11/21/22 13:48 Antibiotics) Exam Vital Signs (past 8 hours): - 11/21/22 13:57 Temperature 97.1 F L Pulse Rate 78 Respiratory Rate 16 Blood Pressure 123/72 Pulse Oximetry 98 Oxygen Delivery Method Room Air Oxygen Delivery Method Room Air Const General: cooperative, healthy appearing and comfortable Nutritional Appearance: thin HENMT Head: normal to inspection Eyes General: appearance normal, both eyes and all related structures Neck Neck: normal visual inspection Resp Effort & Inspection: normal respiratory effort and able to speak in complete sentences GI Palpation: soft Skin General: no rashes or lesions noted Assessment & Plan Assessment and plan (1) Anal adenocarcinoma: Status: Acute Assessment & Plan narrative: I discussed the risks benefits and alternatives of Port-A-Cath placement including but not limited to infection, bleeding, mechanical or functional failure of the catheter, requiring removal or replacement, pneumothorax in rare cases. She understands the risks benefits and alternatives and would like to proceed
[2022-11-21] MEDS: CEFAZOLIN 2 GM/100 ML PREMIX 100 ML IV (14:45)
--- NOTE | 2022-11-21 14:58 | SUR.OPER ---
Supine on padded OR bed, head on pillow, arms padded and tucked at sides, legs uncrossed, safety belt at thigh, tape over blanket over lower legs .
[2022-11-21] MEDS: HEPARIN 5,000 UNIT, SODIUM CHLORIDE 0.9% 50 ML IV (15:06)
[2022-11-21] MEDS: BUPIVACAINE 0.5% (PF) 30 ML, EPINEPHrine 0.15 MG INJ (15:07)
--- NOTE | 2022-11-21 15:19 | DI.RAD.S_ITS ---
PROCEDURE: XR CHEST 1V INDICATIONS: POST OP PORT A CATH PLACEMENT TECHNIQUE: One view of the chest was acquired. COMPARISON: None. FINDINGS: Surgical changes and devices: Left-sided Port-A-Cath tip in the mid SVC. No pneumothorax Lungs and pleura: Lungs are clear. No pleural effusions or pneumothorax. Mediastinum: Mediastinal contours appear normal. Heart size is normal. Bones and chest wall: No suspicious bony lesions. Overlying soft tissues appear unremarkable. IMPRESSION: Left-sided Port-A-Cath in good position. No pneumothorax Approved by: Diego Rebolledo M.D. on 11/21/2022 at 20:58
[2022-11-21 15:30] VITALS: BP 130/91; PULSE 69; RESP 12; TEMP 36.3; O2SAT 97
[2022-11-21 15:35] VITALS: BP 126/90; PULSE 74; RESP 15; TEMP 36.3; O2SAT 96
[2022-11-21 15:43] VITALS: BP 139/92; PULSE 82; RESP 14; TEMP 36.3; O2SAT 97
--- NOTE | 2022-11-21 15:43 | PM.OP.1 ---
Operative Date/Time/Diagnoses Date of procedure: 11/21/22 Time of procedure: 15:43 Pre-op diagnosis: Stage IV anal cancer Post-op diagnosis: same Procedure & Clinicians Procedure: Port-A-Cath placement Same procedure as scheduled: Yes Indications: Need for chemotherapy Surgeon: Tana Choi Anesthesia Type: General (LMA) and Local Operative Notes Specimen(s): none sent Procedure in detail: Patient was taken to the operating room bilateral SCDs were placed preoperative antibiotics administered a time-out was performed. LMA anesthesia was induced patient was positioned with a shoulder roll and in Trendelenburg position. The area around the left subclavian and jugular veins was prepped and draped in the usual sterile fashion. Because the patient is right-handed I began on the left side with an ultrasound probe. I was able to easily see the jugular vein. I used the introducer needle to enter the vein on the 1st stick. Venous blood returned and the guidewire was threaded through the introducer needle. A spot film confirmed a nice location of the wire and the introducer needle was removed over the wire. Next, I made an incision on her left chest with #10 blade and created a pocket for the catheter. I then introduced the dilator. Next, threaded the catheter using the tunneler through the pocket wound up to the left neck where the dilator was located. I then measured the catheter to an appropriate length based on a spot film and cut the catheter at 20 cm. I then placed the tip of the catheter into the tunnel and cracked the tunnel to place the catheter. I then confirmed that nice location of final of the catheter with an x-ray. I flushed and aspirated the catheter and secured it with 2 Prolene sutures at the top 2 corners closed the subcutaneous tissue with few interrupted 3-0 Vicryl sutures and closed the skin with a 4-[address] I did place 1 interrupted 4-0 Monocryl in the neck wound and covered that with Steri-Strips as well. Local anesthetic had been infused prior to placing the first needle in the neck at the beginning of the case using ultrasound guidance to numb the sternocleidomastoid. I also then infused local anesthetic prior to creating the pocket using some hydrostatic pressure to help with dissection. Patient tolerated the procedure well and went in good condition to the postoperative care unit. Postoperative x-ray was obtained and there was no pneumothorax and the catheter appeared in good position. Complications: none Post-operative Condition: stable Disposition: same day surgery Plan for aftercare: Standard postoperative instructions. okay to use catheter
[2022-11-21 15:49] VITALS: BP 140/99; PULSE 64; RESP 14; TEMP 36.4; O2SAT 97
== END 2022-11-21 16:20 | disposition home or self-care (01) ==
PROVIDERS: PCP Family Medicine; Referring Provider Surgery; Visit Provider Surgery
PROC: (CPT 36561; principal; 2022-11-21 14:30)
DX: C21.0 Malignant neoplasm of anus, unspecified (principal)
CPT/HCPCS: 36561; 71045; 76000; C1788; J0171; J0690; J1100; J1644; J2250; J2405; J2704; J3010

== ENCOUNTER 2025-02-24 12:33 | Emergency (ER) | payer BC, SELFPAY ==
[2025-02-24] VITALS (22 sets, daily range): BP systolic 81–112; BP diastolic 49–69; PULSE 57–86; RESP 9–18; TEMP 36.4–36.9; O2SAT 98–100; BMI 14.4
--- OUTSIDE RECORDS SUMMARY | 2025-02-24 12:36 | XMS_ITS | Encounter Summary ---
Author Organization [facility] Address [address] [place] [address] Care Team Providers Care Reimbursement Director Name Role Phone Christina Nicholas Primary Care Provider [phone] Reason for Visit * Reason Onset Date Comments Med Refill 02/11/2025 Encounter Details Date Type Department Care Team (Late st Contact Info) Description 02/11/2025 Refill Formerly [facility] Oncology [address] [phone] Tru aMtos MD [address] [place] [id number] Cancer associated pain Social History Tobacco Use Types Packs/Day Years Used Date Smoking Tobacco: Every Day Cigarettes 0.5 30 Smokeless Tobacco: Never Alcohol Use Standard Drinks/Week Comments Yes 0 (1 standard drink = 0.6 oz pur e alcohol) 2 glasses wine weekly Comments No Sex and Gender Information Value Date Recorded Sex Assigned at Not on file Legal Sex Female 10:07 AM PDT Gender Identity Not on file Sexual Orientation Not on file documented as of this encounter Plan of Treatment Upcoming Encounters Date Type Department Care Team (Latest Contact Info) Description 03/09/2025 8:45 AM PST Consult [facility]rology [place] [address] [place] [phone] 03/10/2025 7:30 AM PST Lab [facility] [address] [place] [phone] 03/10/2025 8:00 AM PST Office Visit [facility] Oncology [place] [address] [place] [address], [address] [place] [address] Carly January Ortiz, CHARGER OPERATOR HELPER [address] [place] [address] [address] [place] [address] 03/10/2025 8:30 AM PST Infusion [facility] Oncology Infusion [address], [address] [place] [address] 04/02/2025 2:05 PM PST Hospital Encounter [facility] Operating Room [address] [place] [phone] Gavino Virk MD [address] [place] [phone] 04/02/2025 2:05 PM PST - 04/02/2025 2:55 PM PST Surgery [facility] Operating Room [address] [place] [phone] Gavino Virk MD [address] [place] [phone] CYSTOURETHROSCOPY WITH INSERTION OF DOUBLE-J URETERAL STENT [38272 (CPT )] Scheduled Procedures Name Priority Associated Diagnoses Date/Ti me CYSTOURETHROSCOPY WITH INSERTION OF DOUBLE-J URETERAL STENT Hydronephrosis, unspecified hydronephrosis type 04/02/2025 2:05 PM PST documented as of this encounter Visit Diagnoses Diagnosis Hydronephrosis- Primary Cancer associated pain Neoplasm related pain (acute) (chronic) Hydronephrosis, unspecified hydronephrosis type documented in this encounter Care Teams Reimbursement Director Relationship Specialty Start Date End Date CristopherChristina PCP - General Family Medicine 12/29/24 documented as of this encounter
[2025-02-24 14:00] LABS: Add Manual Diff / Slide Review NO; Lymphocytes Absolute Auto 400 /uL (1100-4500); Mean Corpuscular HGB Conc 34.8 % (30-36); Mean Corpuscular Hemoglobin 35.6 PG (26-34); Mean Corpuscular Volume 102.3 fL (80-100); Platelet Count 295 X10^3/uL (150-400)
[2025-02-24 14:05] LABS: Hematocrit 14.8 % (36-46); Hemoglobin 5.2 g/dL (12.0-16.0)
[2025-02-24 14:08] LABS: INR 1.2 (0.9-1.3); Prothrombin Time 13.3 SECONDS (9.4-12.5)
[2025-02-24 14:11] LABS: PTT Partial Thromboplastin Tim 26 SECONDS (25.1-36.5)
--- NOTE | 2025-02-24 14:22 | ED.RECABL ---
HPI - Recheck/Abnormal Lab/Rx <Erna Ny DO - Last Filed: 02/25/25 10:12> General Chief Complaint: Recheck/Abnormal Lab/Rx Stated Complaint: PCref from Lab results, needs blood infusion Time Seen by Provider: 02/24/25 13:44 Source: patient Mode of arrival: Ambulatory History of Present Illness HPI narrative: 54-year-old female with stage IV colorectal cancer follows with the [facility] she got a call today had regular outpatient labs and has a hemoglobin of 5 was told to come to the emergency department. She has a old labs available on January 06 she was 9.5, January 27 she was 7. She has not appreciate any black or bloody stools but suspect this is her source. Patient has felt increasingly tired and fatigued. She has felt short of breath at times but denies any active chest pain. No syncope. No nausea or vomiting no other GI or urinary symptoms. She is currently received treatment every 2 weeks. She is on Avastin. Has a allergies to Cipro, sulfa and on amoxicillin. She states she has had prior cholecystectomy but denies other surgeries. Does use tobacco daily, denies any alcohol use, occasional marijuana no recreational drugs. Dr. Rey is her primary care physician. Her oncology team was the 1 that called her to come to the ER for her low hemoglobin. She has not ever had a blood transfusion. Related Data Home Medications ?Medication ?Instructions ?Recorded ?Confirmed levonorgestrel (Mirena) 52 mg INTRAU NOW ##0 06/19/16 11/04/24 morphine 15 mg tablet,extended 15 mg PO DAILY Cancer pain 12/03/23 11/04/24 release Previous Rx's ?Medication ?Instructions ?Recorded alprazolam 0.5 mg tablet 0.5 mg PO Q6H PRN anxiety #10 tabs 05/29/12 hydrocodone 5 mg-acetaminophen 325 1.5 tab PO Q6H PRN pain #60 tabs 11/23/22 mg tablet Allergies Allergy/AdvReac Type Severity Reaction Status Date / Time ciprofloxacin Allergy Severe throat Verified 11/04/24 08:50 swelling Sulfa (Sulfonamide Allergy Mild Rash Verified 11/04/24 08:50 Antibiotics) amoxicillin Allergy Rash Verified 02/24/25 13:10 Review of Systems <Erna Ny DO - Last Filed: 02/25/25 10:12> Review of Systems ROS Unobtainable: All systems reviewed & are unremarkable except as noted in HPI and below Patient History <Erna Ny DO - Last Filed: 02/25/25 10:12> Medical History Tobacco abuse IUD (intrauterine device) in place Lumbosacral spondylosis Nontraumatic coccydynia Anxiety Chicken pox (1972) Abnormal Pap smear of cervix (1993) Anorexia nervosa (1985) Anxiety (10/26/10) Surgical History Mallie teeth removed (03/05/90) History of section (02/20/03) Anesthesia complication Status post LASIK surgery (2003) Status post delivery (2002) Status post cholecystectomy (1998) Family History Father No problems noted. Grandfather No problems noted. Grandmother Breast cancer Mother Hyperlipidemia Grandfather No problems noted. Grandmother No problems noted. Social History household members: spouse Smoking Status: Current every day smoker alcohol intake: current Smoking Status: Current every day smoker tobacco type: cigarettes alcohol intake frequency: 0-2 drinks per day Exam <Erna Ny DO - Last Filed: 02/25/25 10:12> Narrative Exam Narrative: GENERAL: Alert and oriented x three, female in mild distress. Pale. HEENT: Head normocephalic, atraumatic, EOMI, pupils reactive, face symmetric, moist mucous membranes NECK: Supple, full range of motion CARDIOVASCULAR: Regular rate and rhythm without murmurs, rubs or gallops. RESPIRATORY: Breath sounds equal bilaterally, no wheezes rales or rhonchi. No tachypnea accessory muscle use. ABDOMEN: Soft, nontender. Normoactive bowel sounds all 4 quadrants. No guarding or rebound, rigidity, no mass : No CVA tenderness EXTREMITIES: Normal range of motion, Neurovascularly intact NEUROLOGICAL: Cranial nerves II through XII grossly intact. Moving all extremities SKIN: Warm, dry, no petechiae, no rashes or lesions. Initial Vital Signs Initial Vital Signs: Vital Signs Temperature 98.1 F 02/24/25 13:10 Pulse Rate 72 02/24/25 13:10 Respiratory Rate 18 02/24/25 13:10 Blood Pressure 106/57 L 02/24/25 13:10 Pulse Oximetry 100 02/24/25 13:10 Oxygen Delivery Method Room Air 02/24/25 13:10 <Michael Saenz, DO - Last Filed: 02/24/25 20:24> Initial Vital Signs Initial Vital Signs: Vital Signs Temperature 98.1 F 02/24/25 13:10 Pulse Rate 72 02/24/25 13:10 Respiratory Rate 18 02/24/25 13:10 Blood Pressure 106/57 L 02/24/25 13:10 Pulse Oximetry 100 02/24/25 13:10 Oxygen Delivery Method Room Air 02/24/25 13:10 Course <Erna Ny, DO - Last Filed: 02/25/25 10:12> Orders Ordered: Discontinued Medications Methadone HCl (Methadone Intensol 10 Mg/Ml Oral.Conc) 12.5 mg PO NOW ONE Stop: 02/24/25 17:01 Last Admin: 02/24/25 17:07 Dose: 12.5 mg Documented By: GERARDO Oxycodone HCl (Oxycodone Ir 5 Mg Tablet) 20 mg PO NOW ONE Stop: 02/24/25 18:03 Last Admin: 02/24/25 18:21 Dose: 20 mg Documented By: GERARDO Vital Signs Vital signs: Vital Signs - 8 hr 02/24/25 13:10 02/24/25 15:00 02/24/25 15:11 Temperature 98.1 F Pulse Rate 72 61 71 Respiratory Rate 18 12 10 L Blood Pressure 106/57 L 84/50 L 84/50 L Pulse Oximetry 100 100 99 Oxygen Delivery Method Room Air Room Air Room Air 02/24/25 15:13 02/24/25 15:15 02/24/25 15:15 Temperature 97.8 F Pulse Rate 65 61 61 Respiratory Rate 10 L 16 9 L Blood Pressure 87/49 L 86/51 L 86/51 L Pulse Oximetry 100 100 Oxygen Delivery Method Room Air Room Air 02/24/25 15:16 02/24/25 15:20 02/24/25 15:25 Temperature Pulse Rate 62 61 61 Respiratory Rate 12 11 L 11 L Blood Pressure 91/54 L 89/51 L 91/57 L Pulse Oximetry 100 100 100 Oxygen Delivery Method Room Air Room Air Room Air 02/24/25 15:30 02/24/25 15:30 02/24/25 15:35 Temperature Pulse Rate 61 61 62 Respiratory Rate 11 L 11 L 12 Blood Pressure 82/52 L 82/52 L 88/50 L Pulse Oximetry 100 100 100 Oxygen Delivery Method Room Air Room Air Room Air 02/24/25 15:39 02/24/25 16:00 02/24/25 16:00 Temperature 98.4 F Pulse Rate 61 62 62 Respiratory Rate 16 16 11 L Blood Pressure 88/50 L 81/52 L 87/53 L Pulse Oximetry 100 Oxygen Delivery Method Room Air 02/24/25 16:22 02/24/25 17:00 02/24/25 17:18 Temperature 97.6 F 97.6 F Pulse Rate 63 60 60 Respiratory Rate 18 11 L 16 Blood Pressure 103/66 101/64 103/66 Pulse Oximetry 100 Oxygen Delivery Method Room Air 02/24/25 17:23 02/24/25 17:30 02/24/25 17:35 Temperature 98.4 F 97.8 F Pulse Rate 61 61 57 L Respiratory Rate 11 L 18 16 Blood Pressure 92/55 L 103/62 103/62 Pulse Oximetry 100 99 Oxygen Delivery Method Room Air 02/24/25 17:35 02/24/25 18:00 02/24/25 19:13 Temperature 97.8 F 98.4 F Pulse Rate 58 L 59 L 60 Respiratory Rate 16 18 16 Blood Pressure 103/60 103/62 Pulse Oximetry 100 Oxygen Delivery Method 02/24/25 19:25 Temperature Pulse Rate 58 L Respiratory Rate 16 Blood Pressure 112/69 Pulse Oximetry 100 Oxygen Delivery Method Room Air <Michael Saenz, DO - Last Filed: 02/24/25 20:24> Orders Ordered: Discontinued Medications Methadone HCl (Methadone Intensol 10 Mg/Ml Oral.Conc) 12.5 mg PO NOW ONE Stop: 02/24/25 17:01 Last Admin: 02/24/25 17:07 Dose: 12.5 mg Documented By: GERARDO Oxycodone HCl (Oxycodone Ir 5 Mg Tablet) 20 mg PO NOW ONE Stop: 02/24/25 18:03 Last Admin: 02/24/25 18:21 Dose: 20 mg Documented By: GERARDO Vital Signs Vital signs: Vital Signs - 8 hr 02/24/25 13:10 02/24/25 15:00 02/24/25 15:11 Temperature 98.1 F Pulse Rate 72 61 71 Respiratory Rate 18 12 10 L Blood Pressure 106/57 L 84/50 L 84/50 L Pulse Oximetry 100 100 99 Oxygen Delivery Method Room Air Room Air Room Air 02/24/25 15:13 02/24/25 15:15 02/24/25 15:15 Temperature 97.8 F Pulse Rate 65 61 61 Respiratory Rate 10 L 16 9 L Blood Pressure 87/49 L 86/51 L 86/51 L Pulse Oximetry 100 100 Oxygen Delivery Method Room Air Room Air 02/24/25 15:16 02/24/25 15:20 02/24/25 15:25 Temperature Pulse Rate 62 61 61 Respiratory Rate 12 11 L 11 L Blood Pressure 91/54 L 89/51 L 91/57 L Pulse Oximetry 100 100 100 Oxygen Delivery Method Room Air Room Air Room Air 02/24/25 15:30 02/24/25 15:30 02/24/25 15:35 Temperature Pulse Rate 61 61 62 Respiratory Rate 11 L 11 L 12 Blood Pressure 82/52 L 82/52 L 88/50 L Pulse Oximetry 100 100 100 Oxygen Delivery Method Room Air Room Air Room Air 02/24/25 15:39 02/24/25 16:00 02/24/25 16:00 Temperature 98.4 F Pulse Rate 61 62 62 Respiratory Rate 16 16 11 L Blood Pressure 88/50 L 81/52 L 87/53 L Pulse Oximetry 100 Oxygen Delivery Method Room Air 02/24/25 16:22 02/24/25 17:00 02/24/25 17:18 Temperature 97.6 F 97.6 F Pulse Rate 63 60 60 Respiratory Rate 18 11 L 16 Blood Pressure 103/66 101/64 103/66 Pulse Oximetry 100 Oxygen Delivery Method Room Air 02/24/25 17:23 02/24/25 17:30 02/24/25 17:35 Temperature 98.4 F 97.8 F Pulse Rate 61 61 57 L Respiratory Rate 11 L 18 16 Blood Pressure 92/55 L 103/62 103/62 Pulse Oximetry 100 99 Oxygen Delivery Method Room Air 02/24/25 17:35 02/24/25 18:00 02/24/25 19:13 Temperature 97.8 F 98.4 F Pulse Rate 58 L 59 L 60 Respiratory Rate 16 18 16 Blood Pressure 103/60 103/62 Pulse Oximetry 100 Oxygen Delivery Method 02/24/25 19:25 Temperature Pulse Rate 58 L Respiratory Rate 16 Blood Pressure 112/69 Pulse Oximetry 100 Oxygen Delivery Method Room Air MDM - Recheck/Abnormal Lab/Rx <Erna C Scottramirez, DO - Last Filed: 02/25/25 10:12> Lab Data 02/24/25 19:39 02/24/25 13:33 Labs: Lab Results 02/24/25 02/24/25 Range/Units 13:33 19:39 WBC 1.8 L* (4.5-11.0) X10^3/uL RBC 1.45 L (4.0-5.2) X10^6/uL Hgb 5.2 L* 8.4 L (12.0-16.0) g/dL Hct 14.8 L* 24.4 L (36-46) % MCV 102.3 H (80-100) fL MCH 35.6 H (26-34) PG MCHC 34.8 (30-36) % RDW 24.4 H (11.6-14.8) % Plt Count 295 (150-400) X10^3/uL Neut % (Auto) 59.5 (50-75) % Lymph % (Auto) 24.1 L (25-40) % Assumption % (Auto) 15.3 H (3-14) % Eos % (Auto) 0.7 L (2-4) % Baso % (Auto) 0.4 (0-2) % Neut # (Auto) 1100 L (3144-3366) /uL Lymph # (Auto) 400 L (6555-5544) /uL Assumption # (Auto) 300 (0-900) /uL Eos # (Auto) 0 (0-450) /uL Baso # (Auto) 0 (0-100) /uL RBC Morphology See below Polychromasia 1+ H Anisocytosis 3+ H Macrocytosis 1+ H PT 13.3 H (9.4-12.5) SECONDS INR 1.2 (0.9-1.3) APTT 26 (25.1-36.5) SECONDS Sodium 134 L (137-145) mmol/L Potassium 3.5 (3.4-5.1) mmol/L Chloride 99 (98-107) mmol/L Carbon Dioxide 25 (22-32) mmol/L BUN 13 (7-17) mg/dL Creatinine 0.84 (0.52-1.04) mg/dL Estimated GFR > 60 (>60) mL/min BUN/Creatinine Ratio 15.5 (6-22) Glucose 100 H (70-99) mg/dL Calcium 7.9 L (8.4-10.2) mg/dL Total Bilirubin 0.7 (0.2-1.3) mg/dL AST 24 (14-36) IU/L ALT 11 (<35) IU/L Alkaline Phosphatase 129 H (38-126) U/L Total Protein 6.8 (6.3-8.2) g/dL Albumin 3.6 (3.5-5.0) g/dL Globulin 3.2 (1.7-4.1) g/dL Albumin/Globulin Ratio 1.1 (1.0-2.8) Blood Type AB Positive Antibody Screen Negative Crossmatch See Detail MDM Narrative Medical decision making narrative: Labs show white count 1.8 hemoglobin of 5.2 platelets of 295, INR is 1.2, sodium is 134 electrolytes are otherwise appropriate BUN and creatinine are appropriate glucose is 100 calcium 7.9, alk-phos is 129. Discussed with the patient she is agreeable for blood transfusion. Suspect her sources for her colorectal cancer. She has not had any active black or bloody stools that she appreciates. Patient signed out to Dr. Saenz while transfusing. Pt tranfused 2 u PRBC IV recheck hg 8.4 afterwards. Pt will f/u with oncology MD <Michael Saenz, DO - Last Filed: 02/24/25 20:24> Lab Data Labs: Lab Results 02/24/25 02/24/25 Range/Units 13:33 19:39 WBC 1.8 L* (4.5-11.0) X10^3/uL RBC 1.45 L (4.0-5.2) X10^6/uL Hgb 5.2 L* 8.4 L (12.0-16.0) g/dL Hct 14.8 L* 24.4 L (36-46) % MCV 102.3 H (80-100) fL MCH 35.6 H (26-34) PG MCHC 34.8 (30-36) % RDW 24.4 H (11.6-14.8) % Plt Count 295 (150-400) X10^3/uL Neut % (Auto) 59.5 (50-75) % Lymph % (Auto) 24.1 L (25-40) % Assumption % (Auto) 15.3 H (3-14) % Eos % (Auto) 0.7 L (2-4) % Baso % (Auto) 0.4 (0-2) % Neut # (Auto) 1100 L (2146-2240) /uL Lymph # (Auto) 400 L (2633-3270) /uL Assumption # (Auto) 300 (0-900) /uL Eos # (Auto) 0 (0-450) /uL Baso # (Auto) 0 (0-100) /uL RBC Morphology See below Polychromasia 1+ H Anisocytosis 3+ H Macrocytosis 1+ H PT 13.3 H (9.4-12.5) SECONDS INR 1.2 (0.9-1.3) APTT 26 (25.1-36.5) SECONDS Sodium 134 L (137-145) mmol/L Potassium 3.5 (3.4-5.1) mmol/L Chloride 99 (98-107) mmol/L Carbon Dioxide 25 (22-32) mmol/L BUN 13 (7-17) mg/dL Creatinine 0.84 (0.52-1.04) mg/dL Estimated GFR > 60 (>60) mL/min BUN/Creatinine Ratio 15.5 (6-22) Glucose 100 H (70-99) mg/dL Calcium 7.9 L (8.4-10.2) mg/dL Total Bilirubin 0.7 (0.2-1.3) mg/dL AST 24 (14-36) IU/L ALT 11 (<35) IU/L Alkaline Phosphatase 129 H (38-126) U/L Total Protein 6.8 (6.3-8.2) g/dL Albumin 3.6 (3.5-5.0) g/dL Globulin 3.2 (1.7-4.1) g/dL Albumin/Globulin Ratio 1.1 (1.0-2.8) Blood Type AB Positive Antibody Screen Negative Crossmatch See Detail MDM Narrative Medical decision making narrative: Labs show white count 1.8 hemoglobin of 5.2 platelets of 295, INR is 1.2, sodium is 134 electrolytes are otherwise appropriate BUN and creatinine are appropriate glucose is 100 calcium 7.9, alk-phos is 129. Discussed with the patient she is agreeable for blood transfusion. Suspect her sources for her colorectal cancer. She has not had any active black or bloody stools that she appreciates. Pt tranfused 2 u PRBC IV recheck hg 8.4 afterwards. Pt will f/u with oncology MD Discharge Plan Departure Patient Disposition: Home Clinical Impression: Anemia Instructions: Anemia Activity Restrictions/Additional Instructions: Follow up with your oncology team. I suspect you are having bleeding related to your colorectal cancer. They will need to rechecked your hemoglobin and watch it to make sure it does not continue to drop. Please return if you have new or worsening symptoms fevers, new chest pain or shortness of breath, any lightheadedness or passing out, new black or bloody stools, new swelling in extremities or other new or concerning changes. Prescriptions: No Action morphine 15 mg tablet extended release 15 mg PO DAILY alprazolam 0.5 mg tablet 0.5 mg PO Q6H PRN (Reason: anxiety) Qty: 10 0RF Mirena 1 EACH intrauterine device 52 mg INTRAU NOW Qty: 0 hydrocodone-acetaminophen 5-325 mg tablet 1.5 tab PO Q6H PRN (Reason: pain) Qty: 60 0RF Rx Instructions: May take 1-2 tabs every 6 hours as needed for pain. Alternate with ibuprofen. May switch out for an extra-strength Tylenol every 6 hours as instructed Referrals: Christina Nicholas MD [Primary Care Provider, Family Practice] Stand Alone Forms: Patient Portal/API
[2025-02-24 14:24] LABS: Alanine Aminotransferase 11 IU/L (<35); Albumin 3.6 g/dL (3.5-5.0); Albumin Globulin Ratio 1.1 (1.0-2.8); Alkaline Phosphatase 129 U/L (38-126); Blood Urea Nitrogen 13 mg/dL (7-17); Calcium 7.9 mg/dL (8.4-10.2); Carbon Dioxide 25 mmol/L (22-32); Chloride 99 mmol/L (98-107); Estimated Glomerular Filt Rate > 60 mL/min (>60); Globulin 3.2 g/dL (1.7-4.1); Glucose 100 mg/dL (70-99); HEMOLYSIS < 15 (0-50); Potassium 3.5 mmol/L (3.4-5.1); Sodium 134 mmol/L (137-145); Total Protein 6.8 g/dL (6.3-8.2)
[2025-02-24 14:31] LABS: Anisocytosis 3+
[2025-02-24 14:33] LABS: Macrocytosis 1+
[2025-02-24 14:34] LABS: Polychromasia 1+
--- NOTE | 2025-02-24 16:00 | PC.NURSE ---
Pt hypotensive prior to blood administration and remains hypotensive, charge and physician aware. Pt in trendelenburg position.
[2025-02-24] MEDS: METHADONE INTENSOL 10 MG/ML ORAL.CONC 12.5 MG PO (17:07)
--- NOTE | 2025-02-24 17:38 | PC.NURSE ---
Second unit of blood infusing, pt tolerating infusion well. She seems upbeat, talking and smiling with family at bedside.
[2025-02-24 19:44] LABS: Hematocrit 24.4 % (36-46); Hemoglobin 8.4 g/dL (12.0-16.0)
== END 2025-02-24 20:46 | disposition home or self-care (01) ==
PROVIDERS: Emergency Medicine; Emergency Provider Family Medicine; PCP Family Medicine
DX: D64.9 Anemia, unspecified (principal); R06.02 Shortness of breath
CPT/HCPCS: 36415; 36430; 80053; 85014; 85018; 85025; 85610; 85730; 86850; 86900; 86901; 99284; P9016

== ENCOUNTER 2025-03-02 09:41 | Emergency (ER) | payer BC, SELFPAY ==
[2025-03-02] VITALS (17 sets, daily range): BP systolic 105–143; BP diastolic 59–79; PULSE 55–78; RESP 17–18; TEMP 36.4; O2SAT 92–99; BMI 14.4
--- OUTSIDE RECORDS SUMMARY | 2025-03-02 09:44 | XMS_ITS | Encounter Summary ---
Author Organization [facility] Address [address] [place] [address] Care Team Providers Care Assembly Room Supervisor Name Role Phone Christina Nicholas Primary Care Provider [phone] Reason for Visit * Reason Onset Date Comments Med Refill 02/11/2025 Encounter Details Date Type Department Care Team (Late st Contact Info) Description 02/11/2025 Refill Located Within [facility] Oncology [address] [phone] Tru Matos MD [address] [place] [id number] Cancer associated pain Social History Tobacco [...] AM PST Consult [facility]rology [place] [address] [place] [phone] 03/10/2025 7:30 AM PST Lab [facility] [address] [place] [phone] 03/10/2025 8:00 AM PST Office Visit Located Within [facility] Oncology [place] [address] [place] [address], [address] [place] [address] Carly January Ortiz, SURGICAL DEVICE SALES REPRESENTATIVE [address] [place] [address] [address] [place] [address] 03/10/2025 8:30 AM PST Infusion Located Within [facility] Oncology Infusion [address], [address] [place] [address] 04/02/2025 2:05 PM PST Hospital Encounter Located Within [facility] Operating Room [address] [place] [phone] Gavino Virk MD [address] [place] [phone] 04/02/2025 2:05 PM PST - 04/02/2025 2:55 PM PST Surgery Located Within [facility] Operating Room [address] [place] [phone] Gvaino Virk MD [address] [place] [phone] CYSTOURETHROSCOPY WITH INSERTION OF DOUBLE-J URETERAL STENT [97353 (CPT )] Scheduled Procedures Name Priority Associated Diagnoses Date/Ti me CYSTOURETHROSCOPY WITH INSERTION OF DOUBLE-J URETERAL STENT Hydronephrosis, unspecified hydronephrosis type 04/02/2025 2:05 PM PST documented as of this encounter Visit Diagnoses Diagnosis Hydronephrosis- Primary 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
--- NOTE | 2025-03-02 09:55 | DI.CT.S_ITS ---
PROCEDURE: CT ABDOMEN PELVIS W CON INDICATIONS: post sacral injection, swelling pain TECHNIQUE: After the administration of intravenous contrast, axial sections acquired from the lung bases to the pubic symphysis. Coronal and sagittal reformats were performed. For radiation dose reduction, the following was used: automated exposure control, adjustment of mA and/or kV according to patient size. COMPARISON: CT chest abdomen pelvis 10/24/2024. FINDINGS: Image quality: Diagnostic. Lower Chest: No significant findings. ABDOMEN: Liver: Redemonstration of numerous hypodense lesions. Gallbladder: Absent Biliary ducts: No biliary dilation. Pancreas: No ductal dilation. Spleen: Size is within normal limits. Adrenal Glands: No adrenal nodules. Kidneys and Ureters: Left double-J nephroureteral stent in place. No hydronephrosis. No solid mass. No complex renal cystic lesion which requires follow up. Stomach and Bowel: Normal colonic caliber, without significant wall thickening. Rectal mass not well visualized on current study. Peritoneum: No abnormal intraperitoneal fluid. No free air. Ventral Wall: No significant ventral hernia. Abdominal Nodes: No retroperitoneal or mesenteric adenopathy by size criteria. Vessels: Aorta and inferior vena cava are normal in size. PELVIS: Pelvic Organs: IUD is in place. Bladder: No bladder wall thickening, accounting for underdistention. Pelvic Nodes: No enlarged lymph nodes. Miscellaneous: No inguinal hernias are seen. Posterior to the sacrum there is soft tissue thickening and gas without organized fluid collection. In the presacral space there is a fluid and gas collection measuring 1.8 x 2.3 x 2.1 cm which appears to be extending to and contiguous with the rectum. Bones: No aggressive osseous abnormality. IMPRESSION: Posterior sacral soft tissue thickening and gas without drainable fluid collection. Findings are concerning for infection. Additional presacral fluid and gas collection measuring up to 2.3 cm appears to be extending from area of known rectal mass, new since prior. Known rectal mass not well visualized by CT. Additional findings as above. Approved by: Melody Varela M.D.,Ph.D. on 03/02/2025 at 12:15
[2025-03-02 10:26] LABS: Add Manual Diff / Slide Review NO; Hematocrit 24.9 % (36-46); Hemoglobin 8.4 g/dL (12.0-16.0); Lymphocytes Absolute Auto 400 /uL (1100-4500); Mean Corpuscular HGB Conc 33.6 % (30-36); Mean Corpuscular Hemoglobin 34.8 PG (26-34); Mean Corpuscular Volume 103.5 fL (80-100); Platelet Count 381 X10^3/uL (150-400)
[2025-03-02] MEDS: KETOROLAC 30 MG/ML VIAL 15 MG IV (10:39)
[2025-03-02] MEDS: ACETAMINOPHEN IV 1,000 MG/100 ML VIAL 400 MG IV (10:39)
--- NOTE | 2025-03-02 10:46 | ED.BACK ---
HPI - Back Pain/Injury General Chief Complaint: Back Pain/Injury Stated Complaint: px in lower back, legs swelling Time Seen by Provider: 03/02/25 09:42 Source: patient History of Present Illness HPI Narrative: Patient is a 54-year-old female with active rectal cancer with metastasis to liver currently on loan surf and Avastin presenting today with increasing rectal pain. He reports she went to [facility] on February 19 for a nerve block says it was in her sacral area not between her lumbar vertebrae, he has had increased pain and swelling in her coccyx. It is getting worse no fever or chills. It hurts to sit. She is having bowel movements but due to her chronic methadone and morphine use she always has some constipation in his taking stool softeners and laxatives regularly. He denies fever chills or sweats.. No significant abdominal pain. Related Data Home Medications ?Medication ?Instructions ?Recorded ?Confirmed levonorgestrel (Mirena) 52 mg INTRAU NOW ##0 06/19/16 11/04/24 morphine 15 mg tablet,extended 15 mg PO DAILY Cancer pain 12/03/23 11/04/24 release Previous Rx's ?Medication ?Instructions ?Recorded alprazolam 0.5 mg tablet 0.5 mg PO Q6H PRN anxiety #10 tabs 05/29/12 hydrocodone 5 mg-acetaminophen 325 1.5 tab PO Q6H PRN pain #60 tabs 11/23/22 mg tablet Allergies Allergy/AdvReac Type Severity Reaction Status Date / Time ciprofloxacin Allergy Severe throat Verified 03/02/25 09:50 swelling Sulfa (Sulfonamide Allergy Mild Rash Verified 03/02/25 09:50 Antibiotics) amoxicillin Allergy Rash Verified 03/02/25 09:50 Patient History Medical History Tobacco abuse IUD (intrauterine device) in place Lumbosacral spondylosis Nontraumatic coccydynia Anxiety Chicken pox (1972) Abnormal Pap smear of cervix (1993) Anorexia nervosa (1985) Anxiety (10/26/10) Surgical History [place] teeth removed (03/05/90) History of section (02/20/03) Anesthesia complication Status post LASIK surgery (2003) Status post delivery (2002) Status post cholecystectomy (1998) Family History Father No problems noted. Grandfather No problems noted. Grandmother Breast cancer Mother Hyperlipidemia Grandfather No problems noted. Grandmother No problems noted. Social History household members: spouse Smoking Status: Current every day smoker alcohol intake: current Smoking Status: Current every day smoker tobacco type: cigarettes alcohol intake frequency: 0-2 drinks per day Exam Initial Vital Signs Initial Vital Signs: Vital Signs Temperature 97.6 F 03/02/25 09:46 Pulse Rate 78 03/02/25 09:46 Respiratory Rate 17 03/02/25 09:46 Blood Pressure 143/71 H 03/02/25 09:46 Pulse Oximetry 98 03/02/25 09:46 Oxygen Delivery Method Room Air 03/02/25 09:46 GENERAL: Alert thin 54-year-old female and in no acute distress. HEENT: Head atraumatic,EOMI, pupils reactive, face symmetric, moist mucous membranes CARDIOVASCULAR: Regular rate and rhythm without murmurs, rubs or gallops. RESPIRATORY: Breath sounds equal bilaterally, no wheezes rales or rhonchi. ABDOMEN: Soft, nontender. Normoactive bowel sounds all 4 quadrants. No guarding or rebound. RECTAL: Swelling noted around toxic mild erythema no gross fluctuation EXTREMITIES: Normal range of motion, no clubbing or edema. Neurovascularly intact NEUROLOGICAL: Alert and oriented x4.Normal gait and speech. Cranial nerves II through XII grossly intact. SKIN: Warm, dry, no laceration, no petechiae, no rashes or lesions. Course Orders Ordered: Discontinued Medications Acetaminophen (Ofirmev) 1,000 mg in 100 mls @ 400 mls/hr IV NOW ONE Stop: 03/02/25 10:09 Last Infusion: 03/02/25 11:03 Dose: Infused Documented By: Admin: 03/02/25 10:39 Dose: 400 mls/hr Documented By: DIANE Ceftriaxone Sodium 2,000 mg/ (Sodium Chloride) 100 mls @ 200 mls/hr IV NOW ONE Stop: 03/02/25 14:25 Last Infusion: 03/02/25 15:31 Dose: Infused Documented By: Admin: 03/02/25 14:52 Dose: 200 mls/hr Documented By: DICK Metronidazole (Flagyl) 500 mg in 100 mls @ 100 mls/hr IV NOW ONE Stop: 03/02/25 15:23 Last Infusion: 03/02/25 16:06 Dose: Infused Documented By: Admin: 03/02/25 14:52 Dose: 100 mls/hr Documented By: DICK Ketorolac Tromethamine (Ketorolac 30 Mg/Ml Vial) 15 mg IV NOW ONE Stop: 03/02/25 09:56 Last Admin: 03/02/25 10:39 Dose: 15 mg Documented By: DIANE Vital Signs Vital signs: Vital Signs - 8 hr 03/02/25 09:46 03/02/25 10:34 03/02/25 10:34 Temperature 97.6 F Pulse Rate 78 63 Respiratory Rate 17 Blood Pressure 143/71 H 117/74 Pulse Oximetry 98 97 Oxygen Delivery Method Room Air 03/02/25 11:00 03/02/25 11:00 03/02/25 11:30 Temperature Pulse Rate 59 L 55 L Respiratory Rate Blood Pressure 109/69 Pulse Oximetry 98 97 Oxygen Delivery Method 03/02/25 12:00 03/02/25 12:30 03/02/25 12:57 Temperature Pulse Rate 55 L 57 L 61 Respiratory Rate Blood Pressure Pulse Oximetry 98 98 98 Oxygen Delivery Method 03/02/25 12:57 03/02/25 13:00 03/02/25 13:00 Temperature Pulse Rate 61 Respiratory Rate Blood Pressure 125/66 117/67 Pulse Oximetry 98 Oxygen Delivery Method 03/02/25 13:30 03/02/25 13:30 03/02/25 14:01 Temperature Pulse Rate 56 L 72 Respiratory Rate Blood Pressure 119/67 Pulse Oximetry 96 92 Oxygen Delivery Method 03/02/25 14:02 03/02/25 14:02 03/02/25 14:30 Temperature Pulse Rate 64 Respiratory Rate Blood Pressure 118/69 124/65 Pulse Oximetry 95 Oxygen Delivery Method 03/02/25 14:30 03/02/25 15:00 03/02/25 15:00 Temperature Pulse Rate 57 L 68 Respiratory Rate Blood Pressure 125/63 Pulse Oximetry 97 97 Oxygen Delivery Method 03/02/25 15:30 03/02/25 15:30 Temperature Pulse Rate 66 Respiratory Rate Blood Pressure 105/59 L Pulse Oximetry 99 Oxygen Delivery Method MDM - Back Pain/Injury Lab Data 03/02/25 10:15 03/02/25 10:29 Labs: Lab Results 03/02/25 03/02/25 Range/Units 10:15 10:29 WBC 6.7 (4.5-11.0) X10^3/uL RBC 2.41 L (4.0-5.2) X10^6/uL Hgb 8.4 L (12.0-16.0) g/dL Hct 24.9 L (36-46) % MCV 103.5 H (80-100) fL MCH 34.8 H (26-34) PG MCHC 33.6 (30-36) % RDW 20.8 H (11.6-14.8) % Plt Count 381 (150-400) X10^3/uL Neut % (Auto) 87.1 H (50-75) % Lymph % (Auto) 6.5 L (25-40) % [place] % (Auto) 5.4 (3-14) % Eos % (Auto) 0.1 L (2-4) % Baso % (Auto) 0.9 (0-2) % Neut # (Auto) 5900 (2212-1880) /uL Lymph # (Auto) 400 L (2390-6077) /uL [place] # (Auto) 400 (0-900) /uL Eos # (Auto) 0 (0-450) /uL Baso # (Auto) 100 (0-100) /uL Sodium 136 L (137-145) mmol/L Potassium 4.1 (3.4-5.1) mmol/L Chloride 104 (98-107) mmol/L Carbon Dioxide 25 (22-32) mmol/L BUN 11 (7-17) mg/dL Creatinine 0.61 (0.52-1.04) mg/dL Estimated GFR > 60 (>60) mL/min BUN/Creatinine Ratio 18.0 (6-22) Glucose 94 (70-99) mg/dL Lactate 0.8 (0.7-2.1) mmol/L Calcium 8.3 L (8.4-10.2) mg/dL Total Bilirubin 0.3 (0.2-1.3) mg/dL AST 21 (14-36) IU/L ALT 10 (<35) IU/L Alkaline Phosphatase 127 H (38-126) U/L Total Protein 6.6 (6.3-8.2) g/dL Albumin 3.4 L (3.5-5.0) g/dL Globulin 3.2 (1.7-4.1) g/dL Albumin/Globulin Ratio 1.1 (1.0-2.8) Procalcitonin 0.049 (<0.5) ng/mL MDM Narrative Medical decision making narrative: MDM CC: Rectal pain Complicating co-morbidities: Metastatic colorectal cancer Data collected from: Patient Medical records reviewed: Prior ED visit on 02/24/2025 seen in ED for anemia Differential considered: Cellulitis, abscess, fistula Exam documented above, pertinent findings include: Alert thin 54-year-old female rectal area does appear swollen mildly erythematous but no obvious fluctuation or abscess Lab Test results independently reviewed as above. Pertinent findings: CBC WBC 6.7, hemoglobin 8.4 hematocrit 24.9 similar to 6 days ago CMP no electrolyte abnormality no ALEJO Lactic acid 0.8 Imaging studies independently reviewed: CT abdomen pelvis fluid gas collection measuring 1.8 x 2.3 x 2.1 cm appears to be extending to and contiguous with the rectum Consultations: 1230 Dr. Ponce, updated on patient's CT exam. Recommends that patient be transferred to higher level of care with IR drainage [id number] Dr. Almodovar, surgery at [facility] updated patient's symptoms test results concern for possible eroding mass. Request that we talked to surgery at [facility] where patient received 1500 AMANDA Sepulveda, surgery at [facility] updated on patient's symptoms test results consulted with Dr. Maldonado. Unfortunately at this time they do not have Interventional Radiology for an abscess. Agree with IV antibiotics agree with transfer to . May need IUD to be removed 1610 Dr. Hill hospitalist at updated patient's symptoms test results and accepts patient Treatments: Toradol Re-evaluations: Patient's pain appears better she continues to be stable and nontoxic Discussion: Patient 54-year-old female history of colorectal cancer currently on chemotherapy presenting today with increasing sacrum rectal pain. The area itself does looks mildly swollen no significant erythema or obvious abscess. CT confirms a gas fluid collection that is under 4 cm. General concern the may need Interventional Radiology for drainage versus surgery for possible fistula. Unfortunately interventional Radiology is not available at this hospital or at [facility] currently. Patient is accepted at . She very much would like to go by private vehicle. At this time she is stable not requiring any IV drips. Hurt her other medications she is quite adamant about going POV. Seems reasonable she is reliable Discharge Plan Departure Patient Disposition: [facility] Clinical Impression: Abscess of sacrum, Colorectal cancer Prescriptions: No Action morphine 15 mg tablet extended release 15 mg PO DAILY alprazolam 0.5 mg tablet 0.5 mg PO Q6H PRN (Reason: anxiety) Qty: 10 0RF Mirena 1 EACH intrauterine device 52 mg INTRAU NOW Qty: 0 hydrocodone-acetaminophen 5-325 mg tablet 1.5 tab PO Q6H PRN (Reason: pain) Qty: 60 0RF Rx Instructions: May take 1-2 tabs every 6 hours as needed for pain. Alternate with ibuprofen. May switch out for an extra-strength Tylenol every 6 hours as instructed Referrals: Christina Nicholas MD [Primary Care Provider, Family Practice]
[2025-03-02 10:58] LABS: Alanine Aminotransferase 10 IU/L (<35); Albumin 3.4 g/dL (3.5-5.0); Albumin Globulin Ratio 1.1 (1.0-2.8); Alkaline Phosphatase 127 U/L (38-126); Blood Urea Nitrogen 11 mg/dL (7-17); Calcium 8.3 mg/dL (8.4-10.2); Carbon Dioxide 25 mmol/L (22-32); Chloride 104 mmol/L (98-107); Estimated Glomerular Filt Rate > 60 mL/min (>60); Globulin 3.2 g/dL (1.7-4.1); Glucose 94 mg/dL (70-99); HEMOLYSIS < 15 (0-50); Potassium 4.1 mmol/L (3.4-5.1); Sodium 136 mmol/L (137-145); Total Protein 6.6 g/dL (6.3-8.2)
[2025-03-02 10:59] LABS: Lactate (Lactic Acid) 0.8 mmol/L (0.7-2.1)
[2025-03-02 11:15] LABS: Procalcitonin 0.049 ng/mL (<0.5)
[2025-03-02] MEDS: metroNIDAZOLE 500 MG/100 ML PIGGYBACK 100 MG IV (14:52)
[2025-03-02] MEDS: cefTRIAXone 2,000 MG in SODIUM CHLORIDE 0.9% 100 ML 200 MG IV (14:52)
--- NOTE | 2025-03-02 17:44 | PC.NURSE ---
Pt to by [facility] w/her . Report called to VLAD Singh from Bed J-18 @ [phone].
== END 2025-03-02 17:46 | disposition short-term general hospital (02) ==
PROVIDERS: Emergency Medicine; Emergency Provider Student in an Organized Health Care Education/Training Program; PCP Family Medicine
DX: L05.01 Pilonidal cyst with abscess (principal); C19 Malignant neoplasm of rectosigmoid junction; C20 Malignant neoplasm of rectum; C78.7 Secondary malignant neoplasm of liver and intrahepatic bile duct; M54.50 Low back pain, unspecified; R22.40 Localized swelling, mass and lump, unspecified lower limb
CPT/HCPCS: 74177; 80053; 83605; 84145; 85025; 87040; 96365; 96366; 96368; 96375; 99283; J0131; J0696; J1885; J7050; Q9967